=== PATIENT | male | born 1955 | race Caucasian/White ===

== ENCOUNTER 2024-02-02 15:14 | Inpatient (IN) | payer MEDICARE, OTHER ==
[~2024-02-02] VITALS: Ht 180.3 cm; Wt 84.4 kg
[2024-02-02] MEDS: IV NS 0.9% 1,000 ML BAG IV ONE (16:15)
[2024-02-02] MEDS: ACETAMINOPHEN 650 MG/SUPP.RECT RC ONE (16:20)
[2024-02-02] MEDS ORDERED: ACETAMINOPHEN 650 MG/SUPP.RECT RC ONE (16:20)
[2024-02-02 17:12] LABS: BASOPHILS % (AUTO) 0.1 % (0.0-2.0); HEMATOCRIT 39 % (39-51); HEMOGLOBIN 13.1 g/dL (13.5-17.5); LYMPHOCYTES # (AUTO) 0.7 K/uL (0.8-4.8); LYMPHOCYTES % (AUTO) 5.1 % (20.0-44.0); MEAN CORPUSCULAR HEMOGLOBIN 30 PG (26.0-33.0); MEAN CORPUSCULAR HGB CONC 34 g/dl (31.0-36.0); MEAN CORPUSCULAR VOLUME 89 fL (80-96); MONOCYTES # (AUTO) 1.3 K/uL (0.1-1.30); MONOCYTES % (AUTO) 8.6 % (2.0-12.0); NEUTROPHILS # (AUTO) 12.5 K/uL (1.8-8.9); NEUTROPHILS % (AUTO) 86.2 % (43.0-81.0); PLATELET COUNT (AUTO) 165 K/uL (150-450); RED BLOOD CELL COUNT(AUTO) 4.36 MIL/uL (4.5-6.0); RED CELL DISTRIBUTION WIDTH 13.2 % (11.5-15.0); WHITE BLOOD COUNT (AUTO) 14.5 K/uL (4.3-11.0)
[2024-02-02 17:26] LABS: INR 1.19 (0.91-1.10); PARTIAL THROMBOPLASTIN TIME 35.5 SEC (24.3-34.3); PROTHROMBIN TIME 12.5 SECS (9.2-11.1)
[2024-02-02 17:37] LABS: CALCIUM, SERUM 8.8 mg/dL (8.5-10.1); CARBON DIOXIDE 28 mmol/L (21-32); CHLORIDE 103 mmol/L (98-107); CREATININE 0.8 mg/dL (0.6-1.3); GLUCOSE 145 mg/dL (74-106); POTASSIUM 3.5 mmol/L (3.5-5.1); SODIUM SERUM 140 mmol/L (136-145); UREA NITROGEN, BLOOD 14 mg/dL (7-18)
[2024-02-02 17:43] LABS: ALANINE AMINOTRANSFERASE 22 U/L (12-78); ALBUMIN 3.3 g/dL (3.4-5.0); ALKALINE PHOSPHATASE 75 U/L (46-116); ASPARTATE AMINOTRANSFERASE 24 U/L (15-37); BILIRUBIN,DIRECT 0.3 mg/dL (0.0-0.2); TOTAL PROTEIN, SERUM 7.1 g/dL (6.4-8.2)
[2024-02-02] MEDS ORDERED: CEFEPIME 2 GM in IV D5W 50 ML IV ONE (18:00)
[2024-02-02 18:45] LABS: APPEARANCE,URINE CLEAR (CLEAR); BILIRUBIN,URINE NEGATIVE (NEGATIVE); BLOOD, URINE NEGATIVE Ery/uL (NEGATIVE); COLOR,URINE YELLOW (YELLOW); KETONES,URINE NEGATIVE (NEGATIVE); LEUKOCYTE ESTERASE ,URINE NEGATIVE (NEGATIVE); NITRITE, URINE NEGATIVE (NEGATIVE); PH,URINE 7.5 (5.0-8.0); PROTEIN,URINE 1+ mg/dl (NEGATIVE); UGLUCOSE NEGATIVE (NEGATIVE)
[2024-02-02] MEDS ORDERED: ACET-868 PO (18:50)
[2024-02-02] MEDS ORDERED: NA P133E RC (18:50)
[2024-02-02] MEDS ORDERED: OLAN10TA3 PO (18:50)
[2024-02-02] MEDS ORDERED: DORZ10DR13 LEFTEYE (18:50)
[2024-02-02] MEDS ORDERED: MEMA10TA PO (18:50)
[2024-02-02] MEDS ORDERED: NETA2.5D3 EACHEYE (18:50)
[2024-02-02] MEDS ORDERED: TAMS-12 PO (18:50)
[2024-02-02] MEDS ORDERED: MAGN400O6 PO (18:50)
[2024-02-02] MEDS ORDERED: PRAS10TA5 PO (18:50)
[2024-02-02] MEDS ORDERED: OLAN2.5T3 PO (18:50)
[2024-02-02] MEDS ORDERED: ACET-2605 PO (18:50)
[2024-02-02] MEDS ORDERED: MAG30ORA PO (18:50)
[2024-02-02] MEDS ORDERED: BRIM5DRO11 LEFTEYE (18:50)
[2024-02-02] MEDS ORDERED: DOCU100T2 PO (18:50)
[2024-02-02] MEDS: CEFEPIME 2 GM in IV D5W 100 ML IV ONE (18:55)
[2024-02-02 19:02] LABS: ADD URINE CULTURE YES; BACTERIA,URINE 3+ /HPF (None Seen)
[2024-02-02 19:04] LABS: COARSE GRANULAR CASTS,URINE Few /LPF (None Seen)
[2024-02-02] MEDS: VANCOMYCIN 1 GM in IV D5W 250 ML IV ONE (19:38)
[2024-02-02] MEDS ORDERED: MAGNESIUM HYDROXIDE 30 ML UDC PO PRN (20:30)
[2024-02-02] MEDS ORDERED: MAG HYDROX/AL HYDROX/SIMETH 30 ML UDC PO PRN (20:30)
[2024-02-02] MEDS ORDERED: ONDANSETRON HCL/PF 4 MG/2 ML VIAL IVP PRN (20:30)
[2024-02-02] MEDS ORDERED: CEFEPIME 1 GM in IV D5W 50 ML IV SCH (20:30)
[2024-02-02] MEDS ORDERED: IPRATROPIUM NEB FS 0.5 MG/2.5 ML AMPUL.NEB NEB PRN (20:30)
[2024-02-02] MEDS ORDERED: ALBUTEROL FS 2.5 MG/0.5 ML VIAL.NEB NEB PRN (20:30)
[2024-02-02] MEDS: OLANZAPINE 10 MG TABLET PO SCH (21:30)
[2024-02-02] MEDS: TAMSULOSIN 0.4 MG CAP.SR.24H PO SCH (21:30)
[2024-02-02] MEDS: ENOXAPARIN SODIUM 40 MG/0.4 ML DISP.SYRIN SQ SCH (21:32)
[2024-02-03] MEDS ORDERED: ZOSYN IVPB 3.375 G in IV D5W 50ml IV SCH
[2024-02-03 00:22] VITALS: BP 126/99; TEMP 98.8; O2SAT 99
[2024-02-03] MEDS: IV NS 0.9% 1,000 ML IV PRN (00:36)
[2024-02-03] MEDS: VANCOMYCIN 750 MG in IV D5W 250 ML IV SCH (03:00)
[2024-02-03 04:00] VITALS: BP 106/62; TEMP 99; O2SAT 94
[2024-02-03] MEDS ORDERED: CEFEPIME 1 GM VIAL ONE (04:13)
[2024-02-03] MEDS: CEFEPIME 2 GM in IV D5W 100 ML IV SCH (04:14)
[2024-02-03 07:17] LABS: BASOPHILS % (AUTO) 0.2 % (0.0-2.0); EOSINOPHILS % (AUTO) 0.2 % (0.0-6.0); HEMATOCRIT 38 % (39-51); HEMOGLOBIN 12.6 g/dL (13.5-17.5); LYMPHOCYTES # (AUTO) 1.8 K/uL (0.8-4.8); LYMPHOCYTES % (AUTO) 12.7 % (20.0-44.0); MEAN CORPUSCULAR HEMOGLOBIN 30 PG (26.0-33.0); MEAN CORPUSCULAR HGB CONC 34 g/dl (31.0-36.0); MEAN CORPUSCULAR VOLUME 89 fL (80-96); MONOCYTES # (AUTO) 1.2 K/uL (0.1-1.30); MONOCYTES % (AUTO) 8.5 % (2.0-12.0); NEUTROPHILS # (AUTO) 10.8 K/uL (1.8-8.9); NEUTROPHILS % (AUTO) 78.4 % (43.0-81.0); PLATELET COUNT (AUTO) 159 K/uL (150-450); RED BLOOD CELL COUNT(AUTO) 4.22 MIL/uL (4.5-6.0); RED CELL DISTRIBUTION WIDTH 13.1 % (11.5-15.0); WHITE BLOOD COUNT (AUTO) 13.8 K/uL (4.3-11.0)
[2024-02-03 07:51] LABS: THYROID STIMULATING HORMONE 0.964 uIU/mL (0.358-3.74)
[2024-02-03 08:00] VITALS: BP 112/64; TEMP 98.7; O2SAT 100
[2024-02-03 08:09] LABS: CALCIUM, SERUM 8.5 mg/dL (8.5-10.1); CREATININE 0.8 mg/dL (0.6-1.3); PHOSPHORUS 1.8 mg/dL (2.5-4.9); POTASSIUM 3.3 mmol/L (3.5-5.1)
[2024-02-03] MEDS: TIMOLOL MAL/DORZOLAM HCL OPHTH 10 ML BOTTLE LEFTEYE SCH (08:55)
[2024-02-03] MEDS: PANTOPRAZOLE 40 MG VIAL IV SCH (08:55)
[2024-02-03] MEDS: OLANZAPINE 2.5 MG TABLET PO SCH (08:55)
[2024-02-03] MEDS: BRIMONIDINE TARTRATE OPHT SOLN 5 ML BOTTLE LEFTEYE SCH (09:46)
[2024-02-03] MEDS: POTASSIUM CHLORIDE 20 MEQ TAB.PRT.SR PO ONE (11:45)
[2024-02-03] MEDS: diphenhydrAMINE HCL ELIX 25 MG/10 ML UDC PO PRN (12:42)
[2024-02-03 16:00] VITALS: BP 121/90; TEMP 99.4; O2SAT 96
[2024-02-03] MEDS: NEUTRA PHOS 1 POWD.PACKET PO ONE (16:59)
[2024-02-03] MEDS: ACETAMINOPHEN 325 MG TABLET PO PRN (16:59)
[2024-02-03] MEDS ORDERED: Medication Not On Formulary EA (Netarsudil Mesylat/Latanoprost (Rocklatan 0.02%-0.005% E EACHEYE SCH (18:00)
[2024-02-03 20:00] VITALS: BP 125/73; TEMP 98.1; O2SAT 97
[2024-02-03] MEDS: MEMANTINE HCL 5 MG TABLET PO SCH (21:19)
[2024-02-03] MEDS: PERMETHRIN 5% CRM 60 GM TUBE TP ONE (21:19)
[2024-02-03] MEDS: Z GUARD REMEDY 4 OZ OINT TP PRN (21:29)
[2024-02-03] MEDS: VANCOMYCIN HCL 1.25 GM in IV D5W 250 ML IV SCH (21:45)
[2024-02-03] MEDS ORDERED: PERMETHRIN 5% CRM 60 GM TUBE TP ONE (23:29)
[2024-02-04 04:00] VITALS: BP 142/77; TEMP 99.1; O2SAT 98
[2024-02-04 07:05] LABS: BASOPHILS % (AUTO) 0.4 % (0.0-2.0); EOSINOPHILS % (AUTO) 0.3 % (0.0-6.0); HEMATOCRIT 38 % (39-51); LYMPHOCYTES # (AUTO) 1.2 K/uL (0.8-4.8); LYMPHOCYTES % (AUTO) 10.2 % (20.0-44.0); MEAN CORPUSCULAR HEMOGLOBIN 30 PG (26.0-33.0); MEAN CORPUSCULAR HGB CONC 34 g/dl (31.0-36.0); MEAN CORPUSCULAR VOLUME 89 fL (80-96); MONOCYTES # (AUTO) 0.8 K/uL (0.1-1.30); MONOCYTES % (AUTO) 7.1 % (2.0-12.0); NEUTROPHILS # (AUTO) 9.3 K/uL (1.8-8.9); PLATELET COUNT (AUTO) 177 K/uL (150-450); RED BLOOD CELL COUNT(AUTO) 4.34 MIL/uL (4.5-6.0); WHITE BLOOD COUNT (AUTO) 11.3 K/uL (4.3-11.0)
[2024-02-04 07:52] LABS: ALBUMIN 2.6 g/dL (3.4-5.0); BILIRUBIN,TOTAL 0.9 mg/dL (0.2-1.0); CALCIUM, SERUM 8.6 mg/dL (8.5-10.1); CREATININE 0.7 mg/dL (0.6-1.3); MAGNESIUM 2.1 mg/dL (1.8-2.4); PHOSPHORUS 2.2 mg/dL (2.5-4.9); POTASSIUM 3.6 mmol/L (3.5-5.1); TOTAL PROTEIN, SERUM 6.8 g/dL (6.4-8.2)
[2024-02-04 08:00] VITALS: BP 147/90; TEMP 98.1; O2SAT 98
[2024-02-04] MEDS: ENSURE ENLIVE 237 ML LIQUID (VANILLA) PO SCH (08:02)
[2024-02-04] MEDS: PRASUGREL HCL 5 MG TABLET PO SCH (08:41)
[2024-02-04 16:00] VITALS: BP 104/72; TEMP 97.9; O2SAT 97
[2024-02-04] MEDS: NEUTRA PHOS 1 POWD.PACKET PO ONE (16:44)
[2024-02-04 20:00] VITALS: BP 105/63; TEMP 98.3; O2SAT 99
[2024-02-05 04:00] VITALS: BP 105/63; TEMP 98.3; O2SAT 97
[2024-02-05 07:34] LABS: CALCIUM, SERUM 8.6 mg/dL (8.5-10.1); CREATININE 0.7 mg/dL (0.6-1.3); POTASSIUM 3.2 mmol/L (3.5-5.1)
[2024-02-05 08:00] VITALS: BP 126/72; TEMP 97.9; O2SAT 95
[2024-02-05] MEDS: PANTOPRAZOLE 40 MG/PACK PACK PO SCH (09:33)
[2024-02-05] MEDS: POTASSIUM CHLORIDE 20 MEQ POWDER PACKET PO ONE (09:33)
[2024-02-05 12:00] VITALS: BP 126/72; TEMP 98.7; O2SAT 97
[2024-02-05 16:00] VITALS: BP 151/83; TEMP 97.7; O2SAT 97
[2024-02-05 20:00] VITALS: BP 100/70; TEMP 98.6; O2SAT 98
[2024-02-05] MEDS: VANCOMYCIN 750 MG in IV D5W 250 ML IV SCH (21:14)
[2024-02-06 04:00] VITALS: BP 113/78; TEMP 98.3
[2024-02-06 04:23] VITALS: BP 113/78; TEMP 98.3; O2SAT 98
[2024-02-06 07:04] LABS: BASOPHILS % (AUTO) 0.4 % (0.0-2.0); EOSINOPHILS # (AUTO) 0.5 K/uL (0.0-0.7); EOSINOPHILS % (AUTO) 4.8 % (0.0-6.0); HEMATOCRIT 36 % (39-51); HEMOGLOBIN 12.4 g/dL (13.5-17.5); LYMPHOCYTES # (AUTO) 1.2 K/uL (0.8-4.8); LYMPHOCYTES % (AUTO) 12.4 % (20.0-44.0); MEAN CORPUSCULAR HEMOGLOBIN 31 PG (26.0-33.0); MEAN CORPUSCULAR HGB CONC 35 g/dl (31.0-36.0); MEAN CORPUSCULAR VOLUME 89 fL (80-96); MONOCYTES # (AUTO) 0.9 K/uL (0.1-1.30); MONOCYTES % (AUTO) 9.4 % (2.0-12.0); NEUTROPHILS # (AUTO) 6.9 K/uL (1.8-8.9); PLATELET COUNT (AUTO) 211 K/uL (150-450); RED BLOOD CELL COUNT(AUTO) 4.05 MIL/uL (4.5-6.0); RED CELL DISTRIBUTION WIDTH 12.8 % (11.5-15.0); WHITE BLOOD COUNT (AUTO) 9.5 K/uL (4.3-11.0)
[2024-02-06 07:34] LABS: ALBUMIN 2.2 g/dL (3.4-5.0); BILIRUBIN,TOTAL 0.7 mg/dL (0.2-1.0); CALCIUM, SERUM 8.6 mg/dL (8.5-10.1); CREATININE 0.7 mg/dL (0.6-1.3); MAGNESIUM 2.2 mg/dL (1.8-2.4); PHOSPHORUS 2.4 mg/dL (2.5-4.9); POTASSIUM 3.7 mmol/L (3.5-5.1); TOTAL PROTEIN, SERUM 6.4 g/dL (6.4-8.2)
[2024-02-06 08:00] VITALS: BP 119/67; TEMP 97.7; O2SAT 96
[2024-02-06 16:00] VITALS: BP 116/69; TEMP 99.3; O2SAT 96
[2024-02-06] MEDS: NEUTRA PHOS 1 POWD.PACKET PO ONE (16:11)
[2024-02-06 20:00] VITALS: BP 97/71; TEMP 98.2; O2SAT 94
[2024-02-07 04:00] VITALS: BP 99/61; TEMP 98.2; O2SAT 94
[2024-02-07 08:00] VITALS: BP 129/72; TEMP 98; O2SAT 94
[2024-02-07 08:35] LABS: CALCIUM, SERUM 8.1 mg/dL (8.5-10.1); CREATININE 0.7 mg/dL (0.6-1.3); POTASSIUM 3.8 mmol/L (3.5-5.1)
[2024-02-07 16:00] VITALS: BP 123/72; TEMP 99.4; O2SAT 95
[2024-02-07 20:00] VITALS: BP 112/66; TEMP 98.6; O2SAT 95
[2024-02-08 04:00] VITALS: BP 117/69; TEMP 98.4; O2SAT 93
[2024-02-08 08:00] VITALS: BP 141/73; TEMP 98.1
[2024-02-08 08:33] LABS: CALCIUM, SERUM 8.9 mg/dL (8.5-10.1); CREATININE 0.6 mg/dL (0.6-1.3)
[2024-02-08 16:00] VITALS: BP 135/85; TEMP 98.7; O2SAT 95
== END 2024-02-08 18:51 | DRG 178 ==
LOC: ER 15:28 → MEDSG1 19:25
PROVIDERS: ADMIT Nurse Practitioner Acute Care
DX: J69.0 Pneumonitis due to inhalation of food and vomit (principal); D68.59 Other primary thrombophilia; E44.0 Moderate protein-calorie malnutrition; F02.83 Dementia in other diseases classified elsewhere, unspecified severity, with mood disturbance; F02.84 Dementia in other diseases classified elsewhere, unspecified severity, with anxiety; G93.40 Encephalopathy, unspecified; F02.82 Dementia in other diseases classified elsewhere, unspecified severity, with psychotic disturbance; G30.9 Alzheimer's disease, unspecified; F20.9 Schizophrenia, unspecified; F31.9 Bipolar disorder, unspecified; F41.9 Anxiety disorder, unspecified; N40.0 Benign prostatic hyperplasia without lower urinary tract symptoms; D64.9 Anemia, unspecified; E88.09 Other disorders of plasma-protein metabolism, not elsewhere classified; H40.9 Unspecified glaucoma; E80.6 Other disorders of bilirubin metabolism; F29 Unspecified psychosis not due to a substance or known physiological condition; Y95 Nosocomial condition; Z87.440 Personal history of urinary (tract) infections; Z91.81 History of falling; R26.9 Unspecified abnormalities of gait and mobility; E86.0 Dehydration; Z78.1 Physical restraint status; Z74.09 Other reduced mobility; B86 Scabies; R73.9 Hyperglycemia, unspecified
CPT/HCPCS: 36415; 70450-TC; 71045-TC; 80048-TC; 80053-TC; 80061-TC; 80076-TC; 80202-TC; 81001; 83605-TC; 83735-TC; 84100-TC; 84443-TC; 84484-TC; 85025-TC; 85730-TC; 87040-TC; 87086-TC; 92526; 92611-TC; 97110-TC; 97112-TC; 97116-TC; 97530-TC; 97535-TC; A4223; C9113; G0378; J0692; J1650; J2543; J3370; J3371; J7030; J7050; J7060; Q0163